=== PATIENT | female | born 1990 | race Caucasian/White ===

== ENCOUNTER 2018-06-14 18:44 | Emergency (ER) | payer BC ==
--- NOTE | 2018-06-14 20:41 | ER Document Report ---
ED Medical Screen (RME) - General Chief Complaint: Flank Pain Stated Complaint: LEFT SIDE BACK PAIN Time Seen by Provider: 06/14/18 20:39 Notes: Patient is a 28-year-old female approximately 5 weeks 5 days presents to the emergency department with a left flank pain. Patient also complaining of generalized dysuria. Patient states she does not have a history of kidney stones and has not noted any gerry blood in her urine. Patient's denying any fevers, vaginal discharge to include bleeding. Patient's denying any abdominal pain states her pain is localized in her left flank. ABDOMEN: Soft, non-tender. Non-distended. Bowel sounds present in all 4 quadrants. SKIN: Warm, dry, normal turgor. No rashes or lesions noted. I have greeted and performed a rapid initial assessment of this patient. A comprehensive ED assessment and evaluation of the patient, analysis of test results and completion of the medical decision making process will be conducted by additional ED providers. TRAVEL OUTSIDE OF THE [place] IN LAST 30 DAYS: No - Related Data Allergies/Adverse Reactions: amoxicillin [Amoxicillin] Allergy (Unknown, Verified 06/14/18 18:45) Past Medical History - Past Medical History Cardiac Medical History: Denies: Hx Coronary Artery Disease, Hx Heart Attack, Hx Hypertension Pulmonary Medical History: Denies: Hx Asthma, Hx Bronchitis, Hx COPD, Hx Pneumonia Neurological Medical History: Denies: Hx Cerebrovascular Accident, Hx Seizures Musculoskeltal Medical History: Denies Hx Arthritis - Immunizations Hx Diphtheria, Pertussis, Tetanus Vaccination: No Physical Exam - Vital signs Vitals: Temp Pulse Resp BP Pulse Ox 99.1 F 95 16 148/94 H 100 06/14/18 18:49 06/14/18 18:49 06/14/18 18:49 06/14/18 18:49 06/14/18 18:49 Course - Vital Signs Vital signs: Temp Pulse Resp BP Pulse Ox 99.1 F 95 16 148/94 H 100 06/14/18 18:49 06/14/18 18:49 06/14/18 18:49 06/14/18 18:49 06/14/18 18:49
--- NOTE | 2018-06-14 22:12 | RADIOLOGY REPORT (SQ) ---
EXAM DESCRIPTION: US RETROPERITONEUM COMPLETED DATE/TME: 06/14/2018 20:39 CLINICAL HISTORY: 28 years, Female, left flank pain COMPARISON: None. TECHNIQUE: Retroperitoneal ultrasound was performed. LIMITATIONS: None. FINDINGS: Visualized portions of the urinary bladder appear within normal limits. Neither ureteral jet was well visualized. Right kidney measures 10.3 x 5.6 x 4.7 cm in size. Left kidney measures 11.8 x 6.8 x 6.0 cm in size. Both kidneys appear normal in echogenicity. There is mild left hydronephrosis. IMPRESSION: Mild left hydronephrosis. No additional suspicious sonographic abnormality. copyright 2010 [facility] [employer]- All Rights Reserved
[2018-06-14 23:02] LABS: APPEARANCE,URINE SLIGHTLY-CLOUDY; BILIRUBIN,URINE NEGATIVE (NEGATIVE); COLOR,URINE YELLOW; GLUCOSE, URINE NEGATIVE (NEGATIVE); KETONES,URINE NEGATIVE (NEGATIVE); LEUKOCYTE ESTERASE,URINE TRACE (NEGATIVE); NITRITE,URINE NEGATIVE (NEGATIVE); PROTEIN,URINE NEGATIVE (NEGATIVE); URINE SPECIFIC GRAVITY 1.009; UROBILINOGEN,URINE NEGATIVE mg/dL (<2.0)
[2018-06-14 23:33] LABS: ABSOLUTE EOSINOPHILS # (AUTO) 0.3 10^3/uL (0.0-0.6); ABSOLUTE LYMPHOCYTES (AUTO) 2.6 10^3/uL (0.5-4.7); ABSOLUTE MONOCYTES (AUTO) 0.6 10^3/uL (0.1-1.4); ABSOLUTE NEUT (AUTO) 7.3 10^3/uL (1.7-8.2); BASOPHILS % (AUTO) 0.2 % (0-2); EOSINOPHILS % (AUTO) 2.5 % (0-6); HEMATOCRIT 40.1 % (36.0-47.0); HEMOGLOBIN 13.8 g/dL (12.0-15.5); LYMPHOCYTES % (AUTO) 24.1 % (13-45); MEAN CORPUSCULAR HEMOGLOBIN 31.5 pg (27.0-33.4); MEAN CORPUSCULAR HGB CONC 34.4 g/dL (32.0-36.0); MEAN CORPUSCULAR VOLUME 92 fl (80-97); MONOCYTES % (AUTO) 5.9 % (3-13); PLATELET COUNT 297 10^3/uL (150-450); RED BLOOD COUNT 4.38 10^6/uL (3.72-5.28); RED CELL DISTRIBUTION WIDTH 13.3 % (11.5-14.0); SEGMENTED NEUTROPHILS % (AUTO) 67.3 % (42-78); TOTAL CELLS COUNTED % (AUTO) 100 %; WHITE BLOOD COUNT 10.9 10^3/uL (4.0-10.5)
[2018-06-14 23:54] LABS: ANION GAP 9 (5-19); BLOOD UREA NITROGEN 15 mg/dL (7-20); CALCIUM 9.9 mg/dL (8.4-10.2); CARBON DIOXIDE 26 mmol/L (22-30); CHLORIDE 102 mmol/L (98-107); GLUCOSE 169 mg/dL (75-110); POTASSIUM 4.2 mmol/L (3.6-5.0); SODIUM 136.6 mmol/L (137-145)
--- NOTE | 2018-06-15 02:03 | RADIOLOGY REPORT (SQ) ---
US PELVIS HISTORY: Early . Pelvic pain. COMPARISON: None. TECHNIQUE: Grayscale, color Doppler, and spectral Doppler ultrasound images of the pelvis were obtained. FINDINGS: There is an intrauterine gestational sac with a yolk sac and pole visualized. The crown-rump length measures 0.2 cm, corresponding to 5 weeks 5 days of . The heart rate is 141 bpm. The ovaries are unremarkable. IMPRESSION: Single live IUP with estimated gestational age 5 weeks 5 days.
[2018-06-15] MEDS ORDERED: CEPHALEXIN 500 MG CAPSULE PO ONE (02:37)
--- NOTE | 2018-06-15 02:39 | ER Document Report ---
ED General - General Chief Complaint: Flank Pain Stated Complaint: LEFT SIDE BACK PAIN Time Seen by Provider: 06/14/18 20:39 Notes: Patient is a 28-year-old female at 5 weeks by LMP who presents with concerns of left flank pain. Patient states that her symptoms started 2 days ago, have eased off somewhat since onset. It is a throbbing, aching, constant pain to the left flank that intermittently radiates into her left lower abdomen. Notes associated nausea but no vomiting. Has been taking Tylenol with some improvement. States that lying on the area seems to worsen the pain. States that she has had similar symptoms once in the past but they did resolve spontaneously. There is a strong family history of nephrolithiasis although she does not know of any personal history where she has had confirmed nephrolithiasis. Denies any vaginal bleeding, vaginal discharge or dysuria. Has not seen her primary care physician regarding today's concerns. TRAVEL OUTSIDE OF THE [place] IN LAST 30 DAYS: No - Related Data Allergies/Adverse Reactions: amoxicillin [Amoxicillin] Allergy (Unknown, Verified 06/14/18 18:45) Past Medical History - General Information source: Patient - Social History Smoking Status: Never Smoker Frequency of alcohol use: None Drug Abuse: None Lives with: Spouse/Significant other Family History: Reviewed & Not Pertinent Patient has suicidal ideation: No Patient has homicidal ideation: No - Past Medical History Cardiac Medical History: Denies: Hx Coronary Artery Disease, Hx Heart Attack, Hx Hypertension Pulmonary Medical History: Denies: Hx Asthma, Hx Bronchitis, Hx COPD, Hx Pneumonia Neurological Medical History: Denies: Hx Cerebrovascular Accident, Hx Seizures Renal/ Medical History: Denies: Hx Peritoneal Dialysis Musculoskeletal Medical History: Denies Hx Arthritis - Immunizations Hx Diphtheria, Pertussis, Tetanus Vaccination: No Review of Systems - Review of Systems Notes: Constitutional: Negative for fever. HENT: Negative for sore throat. Eyes: Negative for visual changes. Cardiovascular: Negative for chest pain. Respiratory: Negative for shortness of breath. Gastrointestinal: Positive for left flank pain and nausea Genitourinary: Negative for dysuria. Musculoskeletal: Negative for back pain. Skin: Negative for rash. Neurological: Negative for headaches, weakness or numbness. 10 point ROS negative except as marked above and in HPI. Physical Exam - Vital signs Vitals: Temp Pulse Resp BP Pulse Ox 99.1 F 95 16 148/94 H 100 04/24/19 18:49 06/14/18 18:49 06/14/18 18:49 06/14/18 18:49 06/14/18 18:49 Interpretation: Normal Notes: PHYSICAL EXAMINATION: GENERAL: Well-appearing, well-nourished and in no acute distress. HEAD: Atraumatic, normocephalic. EYES: Pupils equal round and reactive to light, extraocular movements intact, sclera anicteric, conjunctiva are normal. ENT: nares patent, oropharynx clear without exudates. Moist mucous membranes. NECK: Normal range of motion, supple without lymphadenopathy LUNGS: Breath sounds clear to auscultation bilaterally and equal. No wheezes rales or rhonchi. HEART: Regular rate and rhythm without murmurs ABDOMEN: Soft, nontender, normoactive bowel sounds. No guarding, no rebound. No masses appreciated. Mild left CVA tenderness. EXTREMITIES: Normal range of motion, no pitting or edema. No cyanosis. NEUROLOGICAL: No focal neurological deficits. Moves all extremities spontaneously and on command. PSYCH: Normal mood, normal affect. SKIN: Warm, Dry, normal turgor, no rashes or lesions noted. Course - Re-evaluation Re-evalutation: 06/15/18 02:35 Patient presents with left flank pain ongoing for the past 48 hours. On exam she has left CVA tenderness but no other areas of localized abdominal tenderness. Renal ultrasound does demonstrate some mild hydronephrosis on the left consistent with probable kidney stone. Urinalysis does show some blood as well as bacteriuria. Laboratories are otherwise unremarkable. Patient's pain has been able to be controlled with oral analgesics here in the emergency department. She is 5 weeks and 5 days confirmed on transvaginal ultrasound. I do not believe it would be appropriate to get a CT scan of the abdomen and pelvis at this point given that the patient's clinical history is most consistent with a kidney stone, she is currently had a stage of critical organogenesis and I believe the risk of radiation exposure is quite high particular given the low benefit yield of a CT scan for kidney stones. Patient is a very much so in agreement with avoiding CT imaging at this time. Will continue to use Tylenol, topical numbing medication, encourage aggressive a vel of fluid intake. I advised that if the patient has not passed the stone within the next several days or continues to have pain she needs to follow-up with urology. I have also advised that she is to return to the emergency department for worsening of her pain, fever, vomiting or any other symptoms that are concerning to her. She and her significant other at the bedside are both in agreement with this approach and comfortable with the plan. - Vital Signs Vital signs: Temp Pulse Resp BP Pulse Ox 98.4 F 82 17 126/61 H 100 06/15/18 02:57 06/15/18 02:57 06/15/18 02:57 06/15/18 02:57 06/15/18 02:57 - Laboratory Result Diagrams: 06/14/18 22:45 06/14/18 22:45 Laboratory results interpreted by me: 06/14/18 06/14/18 06/14/18 22:06 22:45 22:45 WBC 10.9 H Sodium 136.6 L Glucose 169 H Beta HCG, Quant Urine Blood SMALL H Ur Leukocyte Esterase TRACE H 06/14/18 22:45 WBC Sodium Glucose Beta HCG, Quant 04423.00 H Urine Blood Ur Leukocyte Esterase - Diagnostic Test Radiology reviewed: Reports reviewed Discharge - Discharge Clinical Impression: First trimester , Left flank pain, Hydronephrosis, left, Kidney stone on left side Condition: Good Disposition: HOME, SELF-CARE Additional Instructions: Your symptoms should improve over the course of the next one week. If you continue to have pain for greater than one week or your pain is not controlled with Tylenol 1000 mg every 6 hours as well as topical lidocaine which can be purchased directly over the counter. Please also return if you develop fever, persistent vomiting, or any other symptoms that are concerning to you. Please also take the antibiotics as prescribed. Please follow-up with urology in the next 2-3 days. Prescriptions: Cephalexin Monohydrate [Keflex 500 mg Capsule] 500 mg PO Q6H 7 Days capsule
[2018-06-15 02:58] VITALS: BP 126/61
== END 2018-06-15 02:58 | disposition home or self-care (01) ==
LOC: ER 18:44
DX: O99.89 Other specified diseases and conditions complicating pregnancy, childbirth and the puerperium (principal); N13.30 Unspecified hydronephrosis; N13.2 Hydronephrosis with renal and ureteral calculous obstruction; R10.9 Unspecified abdominal pain; Z3A.01 Less than 8 weeks gestation of pregnancy; Z88.0 Allergy status to penicillin
CPT/HCPCS: 36415; 76770; 76817; 80048; 81001; 84702; 85025; 87086; 99284

== ENCOUNTER 2018-10-27 18:26 | Emergency (ER) | payer BC, OTHER ==
[2018-10-27 18:47] VITALS: BP 142/74
[2018-10-27] MEDS ORDERED: ACETAMINOPHEN 325 MG TABLET PO ONE (20:14)
--- NOTE | 2018-10-27 20:16 | ER Document Report ---
ED Medical Screen (RME) - General Chief Complaint: Abscess Stated Complaint: POSSIBLE ABSCESS Time Seen by Provider: 10/27/18 20:14 Mode of Arrival: Ambulatory Information source: Patient Notes: 28-year-old female presented to ED for large abscess to the right inner thigh. She states she noticed it yesterday and is much bigger today. She states it is very painful. She is 25 weeks 2 para 1. History of kidney stones and T&A. Patient states she occasionally drinks when she is not and she works as a [employer] Career and lives with her family. Patient is alert oriented rest. She is regular and unlabored speaking in full sentences. I have greeted and performed a rapid initial assessment of this patient. A comprehensive ED assessment and evaluation of the patient, analysis of test results and completion of medical decision making process will be conducted by an additional ED providers. TRAVEL OUTSIDE OF THE [place] IN LAST 30 DAYS: No - Related Data Allergies/Adverse Reactions: amoxicillin [Amoxicillin] Allergy (Unknown, Verified 10/27/18 18:29) Past Medical History - Social History Chew tobacco use (# tins/day): No Frequency of alcohol use: Rare Drug Abuse: None - Past Medical History Cardiac Medical History: Denies: Hx Coronary Artery Disease, Hx Heart Attack, Hx Hypertension Pulmonary Medical History: Denies: Hx Asthma, Hx Bronchitis, Hx COPD, Hx Pneumonia Neurological Medical History: Denies: Hx Cerebrovascular Accident, Hx Seizures Renal/ Medical History: Denies: Hx Peritoneal Dialysis Musculoskeltal Medical History: Denies Hx Arthritis - Immunizations Hx Diphtheria, Pertussis, Tetanus Vaccination: No Physical Exam - Vital signs Vitals: Temp Pulse Resp BP Pulse Ox 99.2 F 88 16 142/74 H 100 10/27/18 18:44 10/27/18 18:44 10/27/18 18:44 10/27/18 18:44 10/27/18 18:44 Course - Vital Signs Vital signs: Temp Pulse Resp BP Pulse Ox 99.2 F 88 16 142/74 H 100 10/27/18 18:44 10/27/18 18:44 10/27/18 18:44 10/27/18 18:44 10/27/18 18:44
[2018-10-27] MEDS ORDERED: LIDOCAINE 1% INJ-PF (10 MG/ML) 30 ML SDV INJ ONE (22:56)
[2018-10-27] MEDS ORDERED: CLINDAMYCIN HCL 150 MG CAPSULE PO ONE (22:56)
--- NOTE | 2018-10-28 00:22 | ER Document Report ---
ED General - General Chief Complaint: Abscess Stated Complaint: POSSIBLE ABSCESS Time Seen by Provider: 10/27/18 20:14 Primary Care Provider: CONNIE TOVAR MD [Primary Care Provider] - 10/30/18 Mode of Arrival: Ambulatory Notes: Patient is a pleasant 28-year-old female who is approximate 25 weeks presents with complaint of an abscess in the right inner thigh. She says started approximately 2 days ago with a small pimple now has progressed into an abscess. No fevers. No vomiting. No comp occasions with her . No other complaints at this time. TRAVEL OUTSIDE OF THE [place] IN LAST 30 DAYS: No - Related Data Allergies/Adverse Reactions: amoxicillin [Amoxicillin] Allergy (Unknown, Verified 10/27/18 18:29) Past Medical History - General Information source: Patient - Social History Smoking Status: Never Smoker Chew tobacco use (# tins/day): No Frequency of alcohol use: Rare Drug Abuse: None Family History: Reviewed & Not Pertinent Patient has suicidal ideation: No Patient has homicidal ideation: No - Past Medical History Cardiac Medical History: Denies: Hx Coronary Artery Disease, Hx Heart Attack, Hx Hypertension Pulmonary Medical History: Denies: Hx Asthma, Hx Bronchitis, Hx COPD, Hx Pneumonia Neurological Medical History: Denies: Hx Cerebrovascular Accident, Hx Seizures Renal/ Medical History: Denies: Hx Peritoneal Dialysis Musculoskeletal Medical History: Denies Hx Arthritis - Immunizations Hx Diphtheria, Pertussis, Tetanus Vaccination: No Review of Systems - Review of Systems Notes: My Normal Review Basic REVIEW OF SYSTEMS: CONSTITUTIONAL : Denies fever, chills, or sweats. Denies recent illness. Gastrointestinal: No nausea vomiting. No abdominal pain. FEMALE GENITOURINARY: Denies vaginal bleeding, abnormal or irregular periods. LMP: Currently MUSCULOSKELETAL: Denies neck or back pain or joint pain or swelling. SKIN: Abscess right inner thigh NEUROLOGICAL: Denies altered mental status or loss of consciousness. ALL OTHER SYSTEMS REVIEWED AND NEGATIVE. Physical Exam - Vital signs Vitals: Temp Pulse Resp BP Pulse Ox 99.2 F 88 16 142/74 H 100 10/27/18 18:44 10/27/18 18:44 10/27/18 18:44 10/27/18 18:44 10/27/18 18:44 - Notes Notes: General Appearance: Well nourished, alert, cooperative, no acute distress, no obvious discomfort. Well-appearing. Vitals: reviewed, See vital signs table. Lungs: No wheezing, No rales, No rhonci, No accessory muscle use, good air exchange bilaterally. Heart: Normal rate, Regular rythm, No murmur, no rub Skin: warm, dry, appropriate color, patient has an approximate 1- 2cm area of fluctuance right in the right inner thigh and inguinal area. This does not extend into the vaginal labia. Neuro: speech clear, oriented x 3, normal affect, responds appropriately to questions. Course - Re-evaluation Re-evalutation: 10/28/18 06:35 Abscess was incised and drained. Patient feels much improvement after incision and drainage. Small amount of packing was placed. Patient will be placed on clindamycin. She is encouraged to return to the ER follow-up with her doctor on Tuesday for reevaluation and packing removal of the packing still in place. Patient agrees with plan will be discharged home. Patient encouraged to return to the ER immediately if she has spreading redness or swelling, fevers, or feels like she is worsening in any way. Dictation of this chart was performed using voice recognition software; therefore, there may be some unintended grammatical errors. - Vital Signs Vital signs: Temp Pulse Resp BP Pulse Ox 99.2 F 88 16 142/74 H 100 10/27/18 18:44 10/27/18 18:44 10/27/18 18:44 10/27/18 18:44 10/27/18 18:44 Procedures - Incision and Drainage right inner thigh Type: Simple Anesthetic type: 1% Lidocaine mL's of anesthetic: 1 Blade size: 11 I&D procedure: Chlorprep applied Incision Method: Incision made by scalpel Amount/type of drainage: 2mls of purulent drainage Discharge - Discharge Clinical Impression: Abscess Condition: Good Disposition: HOME, SELF-CARE Additional Instructions: POST INCISION AND DRAINAGE: You have had an incision made to allow drainage of an abscess. The incision must remain open so that pus and debris can drain from the wound. If the abscess cavity is large, packing is placed. This keeps the tissues from collapsing and trapping pus inside, while the body shrinks the cavity. The packing may need to be replaced every day or two. The physician will instruct you on the packing. Keep a bulky dressing over the area. Replace it if it becomes saturated with blood or pus. Do not disturb the packing (if present). You may shower and cleanse the area with gentle soap and warm water two or three times a day. Local warmth may be soothing, and may promote faster healing. Return if you develop high fever or chills, or if you note spreading redness, increasing swelling, or increasing tenderness. FOLLOW-UP CARE: Please follow-up with your OB doctor on Tuesday for reevaluation. At that time the packing can be removed. If they are uncomfortable doing this you can return to the ER and we will remove the packing and reevaluate the wound. You can clean the area with soap and water. The packing may fall out on its own. It is okay if the packing does fall out. Please return to ER immediately if you have spreading redness, increasing swelling, fevers, or feel like the infection is worsening in any way. Prescriptions: Clindamycin HCl [Cleocin 150 mg Capsule] 300 mg PO Q6 #56 capsule Referrals: CONNIE TOVAR MD [Primary Care Provider] - 10/30/18
== END 2018-10-28 00:51 | disposition home or self-care (01) ==
LOC: ER 18:26
DX: O26.892 Other specified pregnancy related conditions, second trimester (principal); L02.415 Cutaneous abscess of right lower limb; Z3A.25 25 weeks gestation of pregnancy
CPT/HCPCS: 87070; 87205; 87075; 10060; J3490; 87077; 99283

== ENCOUNTER 2019-01-10 15:57 | Outpatient (CLI) | payer OTHER, MEDICAID ==
[2019-01-10] MEDS: RINGERS SOLUTION,LACTATED 1,000 ML IV PRN ×2 (16:21→17:00)
--- NOTE | 2019-01-10 23:49 | Non Stress Test Report ---
Non Stress Test Datetime Report Generated by CPN: 01/10/2019 23:49 DEMOGRAPHIC EGA NST: 35.6 MONITORING Monitor Explained: Monitor Explained; Test Explained; Patient Verbalized Understanding Time on Monitor: 01/10/2019 16:09 Time off Monitor: 01/10/2019 22:08 NST Duration: 359 NST INTERVENTIONS NST Interventions: PO Hydration; Meal Given; Reposition Patient Physician Notified NST: Dr. Shore BABY A: [id number] BABY A Movement : Present Contraction Frequency : None FHR Baseline : 130 Accelerations : 15X15 Decelerations : None Variability : Moderate 6-25bpm NST Review: Meets Criteria for Reactive NST NST Review and Verified By : Andrade Basurto RN NST Results: Reactive NST REPORT Report Trigger: Send Report
--- NOTE | 2019-01-11 00:35 | RADIOLOGY REPORT (SQ) ---
EXAM DESCRIPTION: [facility]: US LIMITED CLINICAL HISTORY: 28 years Female; oligo at office today EGA 35 weeks 1 day by LMP TECHNIQUE: Transabdominal obstetrical ultrasound was performed. COMPARISON: 06/15/2018 FINDINGS: Number of fetuses: Single position: Breech measurements not obtained. HR: 135 BPM Amniotic fluid: Increased, AILYN 6.9 cm Cervix: 3.6 cm long, closed Placenta: Anterior IMPRESSION: 1. Single viable IUP. 2. Oligohydramnios, AILYN 6.9 cm
== END 2019-01-10 23:11 | disposition home or self-care (01) ==
LOC: LC 15:57
PROVIDERS: ATTEND Advanced Practice Midwife
PROC: 4A1HXCZ Monitoring of Products of Conception, Cardiac Rate, External Approach (ICD-10-PCS; principal; 2019-01-10)
DX: O15.03 Eclampsia complicating pregnancy, third trimester (principal); O24.419 Gestational diabetes mellitus in pregnancy, unspecified control; Z3A.35 35 weeks gestation of pregnancy
CPT/HCPCS: 59025; 76815

== ENCOUNTER 2019-01-13 17:58 | Inpatient (IN) | payer OTHER, MEDICAID ==
[2019-01-13 18:39] LABS: ABSOLUTE EOSINOPHILS # (AUTO) 0.1 10^3/uL (0.0-0.6); ABSOLUTE LYMPHOCYTES (AUTO) 1.9 10^3/uL (0.5-4.7); ABSOLUTE MONOCYTES (AUTO) 0.7 10^3/uL (0.1-1.4); ABSOLUTE NEUT (AUTO) 8.3 10^3/uL (1.7-8.2); BASOPHILS % (AUTO) 0.1 % (0-2); EOSINOPHILS % (AUTO) 1.1 % (0-6); HEMATOCRIT 34.8 % (36.0-47.0); LYMPHOCYTES % (AUTO) 17.5 % (13-45); MEAN CORPUSCULAR HEMOGLOBIN 32.1 pg (27.0-33.4); MEAN CORPUSCULAR HGB CONC 34.3 g/dL (32.0-36.0); MEAN CORPUSCULAR VOLUME 94 fl (80-97); MONOCYTES % (AUTO) 6.4 % (3-13); PLATELET COUNT 226 10^3/uL (150-450); RED BLOOD COUNT 3.72 10^6/uL (3.72-5.28); SEGMENTED NEUTROPHILS % (AUTO) 74.9 % (42-78); TOTAL CELLS COUNTED % (AUTO) 100 %; WHITE BLOOD COUNT 11.1 10^3/uL (4.0-10.5)
[2019-01-13 18:54] LABS: ALKALINE PHOSPHATASE 123 U/L (38-126); ANION GAP 7 (5-19); ASPARTATE AMINO TRANSFERASE 16 U/L (14-36); BILIRUBIN,DIRECT 0.1 mg/dL (0.0-0.4); BILIRUBIN,TOTAL 0.2 mg/dL (0.2-1.3); BLOOD UREA NITROGEN 14 mg/dL (7-20); CALCIUM 9.8 mg/dL (8.4-10.2); CARBON DIOXIDE 23 mmol/L (22-30); CHLORIDE 109 mmol/L (98-107); GLUCOSE 83 mg/dL (75-110); POTASSIUM 4.2 mmol/L (3.6-5.0); TOTAL PROTEIN 5.8 g/dL (6.3-8.2)
[2019-01-13 19:00] LABS: APPEARANCE,URINE SLIGHTLY-CLOUDY; BILIRUBIN,URINE NEGATIVE (NEGATIVE); COLOR,URINE YELLOW; GLUCOSE, URINE NEGATIVE (NEGATIVE); KETONES,URINE NEGATIVE (NEGATIVE); LEUKOCYTE ESTERASE,URINE TRACE (NEGATIVE); NITRITE,URINE NEGATIVE (NEGATIVE); PROTEIN,URINE >=500 mg/dL (NEGATIVE); URINE SPECIFIC GRAVITY 1.018; UROBILINOGEN,URINE NEGATIVE mg/dL (<2.0)
[2019-01-13 19:07] LABS: URINE AMPHETAMINES SCREEN NEGATIVE; URINE BARBITURATES SCREEN NEGATIVE; URINE BENZODIAZEPINES SCREEN NEGATIVE; URINE COCAINE SCREEN NEGATIVE; URINE MARIJUANA (THC) SCREEN NEGATIVE; URINE METHADONE SCREEN NEGATIVE; URINE PHENCYCLIDINE SCREEN NEGATIVE
[2019-01-13] MEDS: RINGERS SOLUTION,LACTATED 1,000 ML IV PRN (19:09)
[2019-01-13 19:11] LABS: URINE CREATININE 125.5 mg/dL (16-327)
[2019-01-13 19:50] LABS: URINE PROTEIN 756.8 mg/dL (<12)
--- NOTE | 2019-01-13 20:11 | Admission Physical ---
Datetime Report Generated by CPN: 01/13/2019 20:11 CURRENT ADMISSION Chief Complaint: Other Chief Complaint Other: bp problems Indication for Induction: Not Applicable Admit Impression- Other: preeclampsia Admit Plan: Admit to Unit ALLERGIES Medication Allergies: Yes Medication Allergies: amoxicillin (01/10/2019) Latex: No Latex Allergies Food Allergies: None Environmental Allergies: None OBSTETRICAL HISTORY EDC: 02/09/2019 00:00 : 3 Para: 1 Term: 1 : 0 SAB: 1 Ectopic: 0 Livin Cesareans: 1 VBACs: 0 Multiple Births: 0 Gestational Diabetes: Yes Rh Sensitization: No Incompetent Cervix: No TENNILLE: No Infertility: No ART Treatment: No Uterine Anomaly: No IUGR: No Hx Previous C/S: Yes Macrosomia: No Hx Loss/Stillborn: No PIH: Yes Hx : No Placenta Previa/Abruption: No Depression/PP Depression: No PTL/PROM: No Post Hemorrhage: No Current Procedures: Ultrasound; NST Obstetrical History Comments: G1- 2015, Pre Eclampcia, at 37.4 weeks, PIH G2- Current, pre eclampsia, GDM diet-controlled and is currently breech. SEE RECORDS Alcohol: No Marijuana : No Cocaine: No Other Illicit Drugs: No Cigarettes: Never Smoker. 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 Heart Disease: No Hosp/Surgery: Yes Autoimmune Disorder: No Anesthetic Complications: No Kidney Disease: Yes Abnormal Pap Smear: No Neuro/Epilepsy: No Psychiatric Disorders: No Other Medical Diseases: No Hepatitis/Liver Disease: No Significant Family History: No Varicosities/Phlebitis: No Trauma/Violence : No Thyroid Dysfunction: No Medical History Comments: Kidney stones, Asthma, and childbirth INFECTIOUS HISTORY Gonorrhea: No Genital Herpes: No Chlamydia: No Tuberculosis: No Syphilis: No Hepatitis: No HIV/AIDS Exposure: No Rash or Viral Illness: No HPV: No PHYSICAL EXAM General: Normal HEENT: Normal Neurologic: Normal Thyroid: Normal Heart: Normal Lungs: Normal Breast: Deferred Back: Normal Abdomen: Normal Genitourinary Exam: Normal Extremities: Normal DTRs: Normal Pelvic Type: Adequate Vital Signs: Reviewed MEMBRANES Pooling: Negative Membranes: Intact FETUS A EGA: 36.1 Monitoring: External US Decelerations: None Presentation: Vertex Admit Comment: Watch bp and plan c section for severe range pressures. We will also check renetta PLANS FOR LABOR AND DELIVERY Labor and Delivery: None Pain Management: Spinal Feeding Preference: Breast Benefit of Breast Feed Discussed: Yes Circumcision: Yes INFORMED CONSENT Signature: with User ID: [email or web address]
--- NOTE | 2019-01-13 21:42 | RADIOLOGY REPORT (SQ) ---
EXAM DESCRIPTION: US LIMITED COMPLETED DATE/TME: 01/13/2019 00:00 CLINICAL HISTORY: 28 years, Female, AILYN and EFW COMPARISON: Multiple priors, most recent from 01/10/2019 TECHNIQUE: Axial 2-D grayscale images of the pelvis were acquired. LIMITATIONS: None. FINDINGS: Limited pelvic ultrasound was performed for an estimated weight and AILYN determination. Findings are as follows: Amniotic fluid index is 6.5 cm Biparietal diameter is 8.62 cm Head circumference is 32.17 cm Abdominal circumference is 32.45 cm Femoral length is 6.68 cm Estimated weight is 2739 g (6 lbs. 1 oz.) Estimated gestational age based on ultrasound is 35 weeks and three days (clinical age is 36 weeks and two days). Estimated date of confinement by ultrasound is 02/14/2019. presentation is breech. heart rate is 132 bpm IMPRESSION: Amniotic fluid index of 6.5 cm, indicating oligohydramnios. Single live intrauterine . Estimated weight is 2739 g (6 lbs. 1 oz.). copyright 2010 [employer]- All Rights Reserved
[2019-01-13] MEDS ORDERED: ACETAMINOPHEN 325 MG TABLET PO PRN (22:07)
[2019-01-14] MEDS: RINGERS SOLUTION,LACTATED 1,000 ML IV PRN (05:10)
[2019-01-14] MEDS ORDERED: BETAMET ACET/BETAMET NA INJ 6 MG/1 ML IM ONE ×2 (09:11→16:00)
--- NOTE | 2019-01-14 09:20 | PDOC PROGRESS REPORT ---
Subjective Progress Note for:: 01/14/19 Subjective:: had headache over night that is better now. tolerating regular diet Reason For Visit: Physical Exam - Physical Exam Vital Signs: Temp Pulse Resp BP Pulse Ox 98.0 F 74 18 154/87 H 100 01/14/19 07:56 01/14/19 07:56 01/14/19 07:56 01/14/19 07:56 01/14/19 07:56 Intake & Output 01/13/19 01/14/19 01/15/19 06:59 06:59 06:59 Intake Total 700 Balance 700 Weight 121 kg General appearance: PRESENT: no acute distress, cooperative GI/Abdominal exam: PRESENT: soft - gravid with no tenderness Result Laboratory Results: 01/13/19 18:15 01/13/19 18:15 01/13/19 01/13/19 01/13/19 18:05 18:15 18:15 WBC 11.1 H RBC 3.72 Hgb 12.0 Hct 34.8 L MCV 94 MCH 32.1 MCHC 34.3 RDW 13.0 Plt Count 226 Seg Neutrophils % 74.9 Sodium 139.4 Potassium 4.2 Chloride 109 H Carbon Dioxide 23 Anion Gap 7 BUN 14 Creatinine 0.72 Est GFR ( Amer) > 60 Glucose 83 Uric Acid 6.0 Calcium 9.8 Total Bilirubin 0.2 AST 16 Alkaline Phosphatase 123 Total Protein 5.8 L Albumin 3.0 L Urine Color YELLOW Urine Appearance SLIGHTLY-CLOUDY Urine pH 7.0 Ur Specific [place] 1.018 Urine Protein >=500 H Urine Glucose (UA) NEGATIVE Urine Ketones NEGATIVE Urine Blood SMALL H Urine Nitrite NEGATIVE Ur Leukocyte Esterase TRACE H Urine WBC (Auto) 6 Urine RBC (Auto) 15 Impressions: Obstetrics Ultrasound 01/13/19 00:00 IMPRESSION: Amniotic fluid index of 6.5 cm, indicating oligohydramnios. Single live intrauterine . Estimated weight is 2739 g (6 lbs. 1 oz.). copyright 2010 [employer]- All Rights Reserved Assessment & Plan - Diagnosis (1) Qualifiers: Weeks of gestation: 36 weeks Qualified Code(s): Z3A.36 - 36 weeks gestation of Is this a current diagnosis for this admission?: Yes (2) Pre-eclampsia Qualifiers: Trimester: third trimester Qualified Code(s): O14.93 - Unspecified pre- eclampsia, third trimester Is this a current diagnosis for this admission?: Yes - Time Time Spent with patient: Less than 15 minutes Medications reviewed and adjusted accordingly: No Within: within 24 hours - Inpatient Certification Based on my medical assessment, after consideration of the patient's comorbidities, presenting symptoms, or acuity I expect that the services needed warrant INPATIENT care.: Yes I certify that my determination is in accordance with my understanding of Medicare's requirements for reasonable and necessary INPATIENT services [42 CFR 412.3e].: Yes Medical Necessity: Need Close Monitoring Due to Risk of Patient Decompensation - Plan Summary Plan Summary: d/w pt and bps are borderline. Will monitor for full 24 hours and if stable will discharge home with modified bedrest until her scheduled c/section on Jan 23. However, if pressures/symptoms worsen will proceed with delivery sooner. Counseled patient regarding benefits of a single dose of steroids to help with FLM and Neuroproection. She agrees with single dose celestone.
[2019-01-14] MEDS: ZOLPIDEM TARTRATE 5 MG TABLET PO SCH ×2 (16:05→21:38)
[2019-01-14] MEDS ORDERED: MAGNESIUM HYDROXIDE SUSP 30 ML UDCUP PO PRN (23:28)
[2019-01-14] MEDS ORDERED: DIBUCAINE 1% OINTMENT 56 GM TP PRN (23:28)
[2019-01-14] MEDS ORDERED: PSEUDOEPHEDRINE HCL 30 MG TABLET PO PRN (23:28)
[2019-01-14] MEDS ORDERED: PROMETHAZINE HCL 25 MG TABLET PO PRN (23:28)
[2019-01-14] MEDS ORDERED: PROMETHAZINE HCL INJ 25 MG/1 ML VIAL IV PRN (23:28)
[2019-01-14] MEDS ORDERED: ZOLPIDEM TARTRATE 5 MG TABLET PO PRN (23:28)
[2019-01-14] MEDS ORDERED: ACETAMINOPHEN 650 MG SUPP.RECT PR PRN (23:28)
[2019-01-14] MEDS ORDERED: MEASLES,MUMPS&RUBELLA VACC/PF 0.5 ML VIAL SUBCUT PRN (23:28)
[2019-01-14] MEDS ORDERED: PROMETHAZINE HCL 25 MG SUPP.RECT PR PRN (23:28)
[2019-01-14] MEDS ORDERED: GLYCERIN/WITCH HAZEL LEAF 1 EACH MED..WIPE TP PRN (23:28)
[2019-01-14] MEDS ORDERED: ACETAMINOPHEN WITH CODEINE #3 TABLET PO PRN ×2 (23:28)
[2019-01-14] MEDS ORDERED: DIPHENHYDRAMINE HCL 25 MG CAPSULE PO PRN (23:28)
[2019-01-14] MEDS ORDERED: NA PHOS,M-B/NA PHOS,DI-BA (ADULT) 133 ML ENEMA PR PRN (23:28)
[2019-01-14] MEDS ORDERED: BENZOCAINE/MENTHOL AEROSOL SPRAY 56 ML TOP PRN (23:28)
[2019-01-14] MEDS ORDERED: OXYTOCIN/NORMAL SALINE 20 UNIT/1,000 ML RTUINJ IV PRN (23:28)
[2019-01-14] MEDS ORDERED: DIPH/PERTUSS(ACELL)/TETANUS VAC/PF 0.5 ML SYR (>=10YO) IM PRN (23:28)
[2019-01-14] MEDS ORDERED: FAMOTIDINE 20 MG TABLET PO SCH (23:30)
[2019-01-15] MEDS ORDERED: IBUPROFEN 800 MG TABLET PO SCH (06:00)
--- NOTE | 2019-01-15 06:56 | PDOC DISCHARGE SUMMARY ---
Impression - Admit/DC Date/PCP Admission Date/Primary Care Provider: 01/13/19 18:36 JUANY BURNS MD Discharge Date: 01/15/19 - Discharge Diagnosis (1) Is this a current diagnosis for this admission?: Yes (2) Pre-eclampsia Is this a current diagnosis for this admission?: Yes - Assessment Summary: hospitalized for observation due to elevated BPs and headache. Her headache has resolved and her bps have been stable in the mildly elevated ranges. She is scheduled for c/section on Jan 23 at 37 wks ega for mild preEclampsia. - Additional Information Resuscitation Status: Full Code Discharge Diet: As Tolerated Discharge Activity: Balance Activity w/Rest Referrals: JUANY BURNS MD [Primary Care Provider] - Home Medications: Vit No.130/Iron/Folic [ Vitamins] 1 each PO DAILY 01/10/19 Aspirin [Aspirin 81 mg Chewable Tablet] 81 mg PO DAILY 01/14/19 Additional Information: patient to keep twice weekly appts for NST/AFIs and continue with planned c/section at 37 wks. History of Present Illiness History of Present Illness: GRIFFIN VARMA is a 28 year old female Physical Exam - Physical Exam Vital Signs: Temp Pulse Resp BP Pulse Ox 98.0 F 74 20 144/90 H 98 01/15/19 03:50 01/15/19 03:50 01/15/19 03:50 01/15/19 03:50 01/15/19 03:50 Intake & Output 01/13/19 01/14/19 01/15/19 06:59 06:59 06:59 Intake Total 700 Balance 700 Weight 121 kg Results Laboratory Results: WBC 11.1 10^3/uL (4.0-10.5) H 01/13/19 18:15 RBC 3.72 10^6/uL (3.72-5.28) 01/13/19 18:15 Hgb 12.0 g/dL (12.0-15.5) 01/13/19 18:15 Hct 34.8 % (36.0-47.0) L 01/13/19 18:15 MCV 94 fl (80-97) 01/13/19 18:15 MCH 32.1 pg (27.0-33.4) 01/13/19 18:15 MCHC 34.3 g/dL (32.0-36.0) 01/13/19 18:15 RDW 13.0 % (11.5-14.0) 01/13/19 18:15 Plt Count 226 10^3/uL (150-450) 01/13/19 18:15 Lymph % (Auto) 17.5 % (13-45) 01/13/19 18:15 [place] % (Auto) 6.4 % (3-13) 01/13/19 18:15 Eos % (Auto) 1.1 % (0-6) 01/13/19 18:15 Baso % (Auto) 0.1 % (0-2) 01/13/19 18:15 Absolute Neuts (auto) 8.3 10^3/uL (1.7-8.2) H 01/13/19 18:15 Absolute Lymphs (auto) 1.9 10^3/uL (0.5-4.7) 01/13/19 18:15 Absolute Monos (auto) 0.7 10^3/uL (0.1-1.4) 01/13/19 18:15 Absolute Eos (auto) 0.1 10^3/uL (0.0-0.6) 01/13/19 18:15 Absolute Basos (auto) 0.0 10^3/uL (0.0-0.2) 01/13/19 18:15 Seg Neutrophils % 74.9 % (42-78) 01/13/19 18:15 Sodium 139.4 mmol/L (137-145) 01/13/19 18:15 Potassium 4.2 mmol/L (3.6-5.0) 01/13/19 18:15 Chloride 109 mmol/L (98-107) H 01/13/19 18:15 Carbon Dioxide 23 mmol/L (22-30) 01/13/19 18:15 Anion Gap 7 (5-19) 01/13/19 18:15 BUN 14 mg/dL (7-20) 01/13/19 18:15 Creatinine 0.72 mg/dL (0.52-1.25) 01/13/19 18:15 Est GFR ( Amer) > 60 (>60) 01/13/19 18:15 Est GFR (MDRD) Non-Af > 60 (>60) 01/13/19 18:15 Glucose 83 mg/dL (75-110) 01/13/19 18:15 Uric Acid 6.0 mg/dL (2.5-6.2) 01/13/19 18:15 Calcium 9.8 mg/dL (8.4-10.2) 01/13/19 18:15 Total Bilirubin 0.2 mg/dL (0.2-1.3) 01/13/19 18:15 Direct Bilirubin 0.1 mg/dL (0.0-0.4) 01/13/19 18:15 Neonat Total Bilirubin Not Reportable 01/13/19 18:15 Neonat Direct Bilirubin Not Reportable 01/13/19 18:15 Neonat Indirect Bili Not Reportable 01/13/19 18:15 AST 16 U/L (14-36) 01/13/19 18:15 ALT 11 U/L (<35) 01/13/19 18:15 Alkaline Phosphatase 123 U/L (38-126) 01/13/19 18:15 Lactate Dehydrogenase 193 U/L (120-246) 01/13/19 18:15 Total Protein 5.8 g/dL (6.3-8.2) L 01/13/19 18:15 Albumin 3.0 g/dL (3.5-5.0) L 01/13/19 18:15 Urine Color YELLOW 01/13/19 18:05 Urine Appearance SLIGHTLY-CLOUDY 01/13/19 18:05 Urine pH 7.0 (5.0-9.0) 01/13/19 18:05 Ur Specific [place] 1.018 01/13/19 18:05 Urine Protein >=500 mg/dL (NEGATIVE) H 01/13/19 18:05 Urine Glucose (UA) NEGATIVE mg/dL (NEGATIVE) 01/13/19 18:05 Urine Ketones NEGATIVE mg/dL (NEGATIVE) 01/13/19 18:05 Urine Blood SMALL (NEGATIVE) H 01/13/19 18:05 Urine Nitrite NEGATIVE (NEGATIVE) 01/13/19 18:05 Urine Bilirubin NEGATIVE (NEGATIVE) 01/13/19 18:05 Urine Urobilinogen NEGATIVE mg/dL (<2.0) 01/13/19 18:05 Ur Leukocyte Esterase TRACE (NEGATIVE) H 01/13/19 18:05 Urine WBC (Auto) 6 /HPF 01/13/19 18:05 Urine RBC (Auto) 15 /HPF 01/13/19 18:05 U Hyaline Cast (Auto) 1 /LPF 01/13/19 18:05 Urine Bacteria (Auto) 1+ /HPF 01/13/19 18:05 Squamous Epi Cells Auto 4 /HPF 01/13/19 18:05 Urine Mucus (Auto) OCC /LPF 01/13/19 18:05 Urine Creatinine 125.5 mg/dL (16-327) 01/13/19 18:05 Protein/Creatinin Ratio 6.0 mg/mg (0.0-0.2) H 01/13/19 18:05 Urine Total Protein 756.8 mg/dL (<12) H 01/13/19 18:05 Urine Ascorbic Acid NEGATIVE (NEGATIVE) 01/13/19 18:05 Urine Opiates Screen NEGATIVE 01/13/19 18:05 Urine Methadone Screen NEGATIVE 01/13/19 18:05 Ur Barbiturates Screen NEGATIVE 01/13/19 18:05 Ur Phencyclidine Scrn NEGATIVE 01/13/19 18:05 Ur Amphetamines Screen NEGATIVE 01/13/19 18:05 U Benzodiazepines Scrn NEGATIVE 01/13/19 18:05 Urine Cocaine Screen NEGATIVE 01/13/19 18:05 U Marijuana (THC) Screen NEGATIVE 01/13/19 18:05 Impressions: Obstetrics Ultrasound 01/13/19 00:00 IMPRESSION: Amniotic fluid index of 6.5 cm, indicating oligohydramnios. Single live intrauterine . Estimated weight is 2739 g (6 lbs. 1 oz.). copyright 2010 [employer]- All Rights Reserved Stroke Is this a Stroke Patient?: No Acute Heart Failure - Is this a Heart Failure Patient?: No
[2019-01-15 07:16] VITALS: BP 148/80
[2019-01-15] MEDS ORDERED: FERROUS SULFATE 325 MG TABLET PO SCH (10:00)
[2019-01-15] MEDS ORDERED: PRENATAL VITAMIN W DHA CAPSULE PO SCH (10:00)
[2019-01-15] MEDS ORDERED: DOCUSATE SODIUM 100 MG CAPSULE PO SCH (10:00)
[2019-01-15] MEDS ORDERED: SENNOSIDES/DOCUSATE 8.6-50 MG 1 EACH TABLET PO SCH (10:00)
[2019-01-16 07:08] LABS: HEPATITS B SURFACE ANTIGEN Negative (Negative)
== END 2019-01-15 07:40 | disposition home or self-care (01) | DRG 833 ==
LOC: LC 17:58 → LR 18:36 → 2S 22:29
PROVIDERS: ADMIT Obstetrics & Gynecology; ATTEND Obstetrics & Gynecology
DX: O14.93 Unspecified pre-eclampsia, third trimester (principal); O24.410 Gestational diabetes mellitus in pregnancy, diet controlled; Z3A.36 36 weeks gestation of pregnancy; O10.913 Unspecified pre-existing hypertension complicating pregnancy, third trimester; Z88.0 Allergy status to penicillin
CPT/HCPCS: 36415; 76815; 80053; 80307; 81001; 82570; 83615; 84156; 84550; 85025; 87340; J0702; J3490; J7120

== ENCOUNTER 2019-01-15 17:13 | Inpatient (IN) | payer OTHER, MEDICAID ==
[2019-01-15 18:32] LABS: ABSOLUTE LYMPHOCYTES (AUTO) 1.8 10^3/uL (0.5-4.7); ABSOLUTE MONOCYTES (AUTO) 0.9 10^3/uL (0.1-1.4); ABSOLUTE NEUT (AUTO) 11.7 10^3/uL (1.7-8.2); BASOPHILS % (AUTO) 0.1 % (0-2); HEMOGLOBIN 12.3 g/dL (12.0-15.5); LYMPHOCYTES % (AUTO) 12.4 % (13-45); MEAN CORPUSCULAR HEMOGLOBIN 31.9 pg (27.0-33.4); MEAN CORPUSCULAR HGB CONC 34.2 g/dL (32.0-36.0); MEAN CORPUSCULAR VOLUME 94 fl (80-97); MONOCYTES % (AUTO) 6.1 % (3-13); PLATELET COUNT 253 10^3/uL (150-450); RED BLOOD COUNT 3.85 10^6/uL (3.72-5.28); RED CELL DISTRIBUTION WIDTH 13.3 % (11.5-14.0); SEGMENTED NEUTROPHILS % (AUTO) 81.4 % (42-78); TOTAL CELLS COUNTED % (AUTO) 100 %; WHITE BLOOD COUNT 14.4 10^3/uL (4.0-10.5)
[2019-01-15 18:36] LABS: APPEARANCE,URINE CLOUDY; BILIRUBIN,URINE NEGATIVE (NEGATIVE); COLOR,URINE YELLOW; GLUCOSE, URINE NEGATIVE (NEGATIVE); KETONES,URINE NEGATIVE (NEGATIVE); LEUKOCYTE ESTERASE,URINE SMALL (NEGATIVE); NITRITE,URINE NEGATIVE (NEGATIVE); PROTEIN,URINE >=500 mg/dL (NEGATIVE); URINE SPECIFIC GRAVITY 1.026; UROBILINOGEN,URINE NEGATIVE mg/dL (<2.0)
[2019-01-15 19:01] LABS: URINE AMPHETAMINES SCREEN NEGATIVE; URINE BARBITURATES SCREEN NEGATIVE; URINE BENZODIAZEPINES SCREEN NEGATIVE; URINE COCAINE SCREEN NEGATIVE; URINE MARIJUANA (THC) SCREEN NEGATIVE; URINE METHADONE SCREEN NEGATIVE; URINE PHENCYCLIDINE SCREEN NEGATIVE
[2019-01-15] MEDS ORDERED: CITRIC ACID/SODIUM CITRATE ORAL SOLN 15 ML UDCUP PO ONE (19:16)
[2019-01-15] MEDS ORDERED: CLINDAMYCIN 900 MG/D5W RTU 900 MG/50 ML RTUPB IV ONE (19:20)
[2019-01-15] MEDS ORDERED: CITRIC ACID/SODIUM CITRATE ORAL SOLN 15 ML UDCUP ONE (19:20)
[2019-01-15] MEDS ORDERED: OXYTOCIN/NORMAL SALINE 20 UNIT/1,000 ML RTUINJ ONE (19:45)
[2019-01-15] MEDS ORDERED: FENTANYL CITRATE INJ/PF 100 MCG/2 ML AMPUL ONE ×2 (19:45→22:22)
[2019-01-15] MEDS ORDERED: ONDANSETRON HCL INJ/PF 4 MG/2 ML SDV ONE (19:45)
[2019-01-15] MEDS ORDERED: MORPHINE SULFATE 10 MG/ML INJ ONE (19:45)
[2019-01-15] MEDS ORDERED: OXYTOCIN 10 UNIT/ML VIAL ONE (19:45)
[2019-01-15] MEDS ORDERED: MIDAZOLAM 2 MG/2 ML INJ ONE (19:45)
--- NOTE | 2019-01-15 19:57 | Admission Physical ---
Datetime Report Generated by CPN: 01/15/2019 19:56 CURRENT ADMISSION Chief Complaint: Scheduled Baggagemaster Complaint Other: bp problems Indication for Induction: Not Applicable Admit Impression : Intact Membranes Admit Impression- Other: preeclampsia Admit Plan: Admit to Unit ALLERGIES Medication Allergies: Yes Medication Allergies: amoxicillin/Swelling of the (01/15/2019) Latex: No Latex Allergies Food Allergies: None Environmental Allergies: None OBSTETRICAL HISTORY EDC: 02/09/2019 00:00 : 3 Para: 1 Term: 1 : 0 SAB: 1 Ectopic: 0 Livin Cesareans: 1 VBACs: 0 Multiple Births: 0 Gestational Diabetes: Yes Rh Sensitization: No Incompetent Cervix: No TENNILLE: No Infertility: No ART Treatment: No Uterine Anomaly: No IUGR: No Hx Previous C/S: Yes Macrosomia: No Hx Loss/Stillborn: No PIH: Yes Hx : No Placenta Previa/Abruption: No Depression/PP Depression: No PTL/PROM: No Post Hemorrhage: No Current Procedures: Ultrasound; NST Obstetrical History Comments: G1- 2015, Pre Eclampcia, at 37.4 weeks, PIH G2- Current, pre eclampsia, GDM diet-controlled and is currently breech. SEE RECORDS Alcohol: No Marijuana : No Cocaine: No Other Illicit Drugs: No Cigarettes: Never Smoker. 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 Surgery: Yes Heart Disease: No Hosp/Surgery: Yes Autoimmune Disorder: No Anesthetic Complications: No Kidney Disease: Yes Abnormal Pap Smear: No Neuro/Epilepsy: No Psychiatric Disorders: No Other Medical Diseases: No Hepatitis/Liver Disease: No Significant Family History: No Varicosities/Phlebitis: No Trauma/Violence : No Thyroid Dysfunction: No Medical History Comments: Kidney stones, Asthma, and childbirth INFECTIOUS HISTORY Gonorrhea: No Genital Herpes: No Chlamydia: No Tuberculosis: No Syphilis: No Hepatitis: No HIV/AIDS Exposure: No Rash or Viral Illness: No HPV: No PHYSICAL EXAM General: Normal HEENT: Normal Neurologic: Normal Thyroid: Normal Heart: Normal Lungs: Normal Breast: Deferred Back: Normal Abdomen: Normal Genitourinary Exam: Normal Extremities: Normal DTRs: Normal Pelvic Type: Adequate Vital Signs: Reviewed VAGINAL EXAM Dilatation: 0 Effacement: 0 MEMBRANES Pooling: Negative Membranes: Intact FETUS A EGA: 36.3 Monitoring: External US FHR- Baseline: 120 Decelerations: None Presentation: Breech Admit Comment: Admit. Bp now severe range BP PLANS FOR LABOR AND DELIVERY Labor and Delivery: None Pain Management: Spinal Feeding Preference: Breast Benefit of Breast Feed Discussed: Yes Circumcision: Yes INFORMED CONSENT Signature: with User ID: [email or web address]
[2019-01-15] MEDS ORDERED: MEASLES,MUMPS&RUBELLA VACC/PF 0.5 ML VIAL SUBCUT PRN (20:59)
[2019-01-15] MEDS ORDERED: PROMETHAZINE HCL INJ 25 MG/1 ML VIAL IV PRN (20:59)
[2019-01-15] MEDS ORDERED: ACETAMINOPHEN 1,000 MG/100 ML RTUPB IV PRN (20:59)
[2019-01-15] MEDS ORDERED: DIPH/PERTUSS(ACELL)/TETANUS VAC/PF 0.5 ML SYR (>=10YO) IM PRN (20:59)
[2019-01-15] MEDS ORDERED: HYDROMORPHONE HCL INJ/PF 2 MG/ML AMPULE IV PRN (20:59)
[2019-01-15] MEDS ORDERED: RINGERS SOLUTION,LACTATED 1,000 ML IV PRN (20:59)
[2019-01-15] MEDS ORDERED: ACETAMINOPHEN 325 MG TABLET PO PRN (20:59)
[2019-01-15] MEDS ORDERED: OXYTOCIN/NORMAL SALINE 20 UNIT/1,000 ML RTUINJ IV PRN (20:59)
--- NOTE | 2019-01-15 21:03 | Operative Report ---
Operative Report DATE OF SURGERY: 01/15/19 PREOPERATIVE DIAGNOSIS: Preeclampsia with severe features, breech, desires tubal ligation POSTOPERATIVE DIAGNOSIS: Same OPERATION: Repeat via low transverse uterine incision tubal ligation using Filshie clips SURGEON: CONNIE TOVAR ANESTHESIA: Spinal TISSUE REMOVED OR ALTERED: Placenta COMPLICATIONS: None ESTIMATED BLOOD LOSS: 400 INTRAOPERATIVE FINDINGS: Normal uterus tubes ovaries PROCEDURE: Patient was taken to the OR and placed in supine position after her spinal anesthesia. She is prepared and draped in sterile fashion. [place] was placed for drainage of the bladder. Low transverse incision was made and carried down the level of the fascia. The fascial incision was made with knife and extended bilaterally with curved Burr scissors. The fascia was off the rectus muscles using sharp and blunt dissection. The rectus muscles are in the midline. The peritoneum was entered without incident. Bladder blade was placed in uterine segment was identified. A low transverse incision was made creating a bladder flap. Bladder blade was placed low transverse uterine incision was made with the knife and extended with fingertips. The baby was delivered with some fundal pressure. Mouth and nose were suctioned free. The cord is doubly clamped and cut. Baby is passed off to the broadband technician in attendance. The placenta was manually extracted with trailing membranes. The uterus was externalized wrapped in a moist lap sponge. Uterine contents wiped free. Uterus was closed with a running locking layer of 0 chromic suture using the second layer to imbricate the first completing a double layer closure of the uterus. The serosa was closed with a running 2-0 chromic stitch. Each fallopian tube was identified by its fimbriated end and a Filshie clip was placed at the mid isthmic portion of each tube. The pelvis was irrigated and suctioned free of fluid the uterus was replaced in the abdomen. The abdominal wall peritoneum was closed with running 2-0 chromic stitch. Fascia was closed with a running 0 Vicryl in 2 segments. Lucy's layer was brought together with 0 plain gut stitch and the skin was closed with running subcuticular 4-0 undyed Vicryl stitch. The wound was dressed mother and baby did well.
[2019-01-15 21:26] LABS: CHLAM PCR NOT DETECTED (NOT DETECT)
[2019-01-15] MEDS ORDERED: ACETAMINOPHEN 1,000 MG/100 ML RTUPB IV ONE (21:26)
[2019-01-15] MEDS ORDERED: MAGNESIUM SULFATE 4 GM/100 ML RTUPB IV ONE ×4 (21:33→21:43)
[2019-01-15] MEDS ORDERED: MAGNESIUM SULFATE 20 GM/500 ML RTUINJ IV ONE (21:43)
[2019-01-15] MEDS: MAGNESIUM SULFATE 20 GM/500 ML RTUINJ IV PRN (22:12)
[2019-01-15] MEDS ORDERED: KETOROLAC TROMETHAMINE INJ/PF 30 MG/1 ML SDV ONE (22:16)
[2019-01-15] MEDS: KETOROLAC TROMETHAMINE INJ/PF 30 MG/1 ML SDV IV SCH (22:17)
--- NOTE | 2019-01-16 00:44 | Delivery Summary ---
Del Sum A-C Datetime Report Generated by CPN: 01/16/2019 00:44 DELIVERY PERSONNEL DELIVERY PERSONNEL: [id number] Delivery Doctor:: Neftaly Richardson MD Anesthesiologist:: Bret Tyson MD SAP GATHERER:: Spike Daly CRNA Labor and Delivery Nurse:: Evita Webber RNcataloging assistant Nurse:: Deja Perdue RN Water Quality Manager:: Evita Webber RN Neonatal Nurse Practitioner:: OLINDA Ng Nursery Nurse:: Lala Leon Nursery Nurse:: Bel Asif RN Change Management Lead/SUPPLY CHAIN DIRECTOR: Jeannie Fam CST Change Management Lead/SUPPLY CHAIN DIRECTOR: Josseline Horne ST MATERNAL INFORMATION Delivery Anesthesia: Spinal Medications After Delivery: Pitocin Bolus-Please Comment Meds After Delivery Comment: Pitocin 20units/1000ml NSS x2 Delivery QBL: 290 Maternal Complications: None LABOR SUMMARY EDC: 02/09/2019 00:00 No. Babies in Womb: 1 Attempted: No Labor Anesthesia: None LABOR INFORMATION Reason for Induction: Not Applicable Oxytocin: N/A Group B Beta Strep: unknown Antibiotics # of Doses: 1 Antibiotics Time of Last Dose: 1950 Name of Antibiotic Given: Clindamycin Steroids Given: > 24 Hours before Delivery Reason Steroids Not Administered: Not Applicable MEMBRANES Membranes Rupture Method: Artificial Rupture of Membranes: 01/15/2019 20:15 Length of Rupture (hr): 0.02 Amniotic Fluid Color: Clear Amniotic Fluid Amount: Moderate Amniotic Fluid Odor: None STAGES OF LABOR Stage 3 hr: 0 Stage 3 min: 2 VAGINAL DELIVERY Episiotomy: None Laceration #1: None Laceration Extension #1: N/A Sponge Count Correct: N/A Sharps Count Correct: N/A CSECTION DELIVERY Primary Indication: Other Other Primary Indication: Pre-Eclampsia Secondary Indication: Breech Presentation CSection Urgency: Scheduled CSection Incidence: Repeat Labor: N/A Elective: Elective CSection Incision: Lower Uterine Transverse Other Sterilization Procedure: Filshie BABY A INFORMATION Delivery Date/Time: 01/15/2019 20:16 Method of Delivery: Born in Route : No : N/A Forceps: N/A Vacuum Extraction: N/A Shoulder Dystocia : No PRESENTATION/POSITION BABY A Presentation: Breech Cephalic Presentation: N/A Breech Presentation: Oumar PLACENTA INFORMATION BABY A Placenta Delivery Time : 01/15/2019 20:18 Placenta Method of Delivery: Manual Removal Placenta Status: Delivered SCORES BABY A Heart Rate 1 min: >100 bpm Resp Effort 1 min: Good Cry Reflex Irritability 1 min: Cough or Sneeze or Pulls Away Muscle Tone 1 min: Active Motion Color 1 min: Blue/Pale Resuscitation Effort 1 min: Tactile Stimulation SCORE 1 MIN: 8 Heart Rate 5 min: >100 bpm Resp Effort 5 min: Good Cry Reflex Irritability 5 min: Cough or Sneeze or Pulls Away Muscle Tone 5 min: Active Motion Color 5 min: Body [place], Extremities Blue SCORE 5 MIN: 9 INFORMATION BABY A Gestational Age at Delivery: 36.3 Gestational Status: Late - 34- 36.6 Weeks Outcome : Liveborn Infant Condition : Stable Sex: Male IDENTIFICATION BABY A Verification Date/Time: 01/15/2019 20:59 ID Band Number: [id number] Mother's Name Verified: Yes RN Verifying Infant: Andrade Basurto, RN and E. Corriek, RN WEIGHT/LENGTH BABY A Infant Birthweight (gm): 2250 Infant Weight (lb): 4 Infant Weight (oz): 15 Length (in): 17.50 Length (cm): 44.45 CORD INFORMATION BABY A No. Cord Vessels: 3 (Annotations: Data stored by [facility] on behalf of user) Nuchal Cord : N/A Cord Blood Taken: Yes-For Eval (Mom's Blood Type - or O+) (Annotations: Data stored by [facility] on behalf of user) Suction: Mouth ASSESSMENT BABY A Skin to Skin: Yes Skin to Skin Time (min): 60 BABY B INFORMATION : N/A
--- NOTE | 2019-01-16 00:44 | Warning Signs in Babies ---
VOD Warning Signs Datetime Report Generated by [facility]: 01/16/2019 00:44 VOD#608 -Warning Signs in Babies: Needs to be viewed. (01/10/2019 16:33:Evita Webber RN)
[2019-01-16] MEDS ORDERED: CLINDAMYCIN 900 MG/D5W RTU 900 MG/50 ML RTUPB IV ONE (01:59)
[2019-01-16] MEDS: CLINDAMYCIN 900 MG/D5W RTU 900 MG/50 ML RTUPB IV SCH ×2 (02:02→20:13)
[2019-01-16] MEDS ORDERED: KETOROLAC TROMETHAMINE INJ/PF 30 MG/1 ML SDV ONE ×2 (05:50→15:36)
[2019-01-16] MEDS: KETOROLAC TROMETHAMINE INJ/PF 30 MG/1 ML SDV IV SCH ×2 (05:52→20:13)
[2019-01-16 06:38] LABS: HEMATOCRIT 34.1 % (36.0-47.0); HEMOGLOBIN 11.7 g/dL (12.0-15.5); MEAN CORPUSCULAR HEMOGLOBIN 32.1 pg (27.0-33.4); MEAN CORPUSCULAR HGB CONC 34.3 g/dL (32.0-36.0); MEAN CORPUSCULAR VOLUME 94 fl (80-97); PLATELET COUNT 227 10^3/uL (150-450); RED BLOOD COUNT 3.65 10^6/uL (3.72-5.28); RED CELL DISTRIBUTION WIDTH 13.3 % (11.5-14.0)
[2019-01-16] MEDS ORDERED: OXYCODONE-ACETAMINOPHEN 5-325 MG TABLET ONE ×2 (06:56→11:24)
[2019-01-16] MEDS: OXYCODONE-ACETAMINOPHEN 5-325 MG TABLET PO PRN ×3 (06:57→21:01)
[2019-01-16] MEDS ORDERED: MAGNESIUM SULFATE 20 GM/500 ML RTUINJ IV ONE (06:59)
[2019-01-16] MEDS: MAGNESIUM SULFATE 20 GM/500 ML RTUINJ IV PRN (07:14)
[2019-01-16] MEDS ORDERED: DOCUSATE SODIUM 100 MG CAPSULE ONE ×2 (09:47→19:26)
[2019-01-16] MEDS: DOCUSATE SODIUM 100 MG CAPSULE PO SCH ×2 (09:49→19:28)
[2019-01-16] MEDS ORDERED: SIMETHICONE 80 MG TAB.CHEW ONE (12:36)
[2019-01-16] MEDS: SIMETHICONE 80 MG TAB.CHEW PO PRN ×2 (12:38→20:59)
[2019-01-16] MEDS ORDERED: KETOROLAC TROMETHAMINE 60 MG/2 ML SDV ONE (15:35)
[2019-01-16] MEDS: PRENATAL VITAMIN W DHA CAPSULE PO SCH (20:12)
[2019-01-16] MEDS: IBUPROFEN 800 MG TABLET PO SCH (20:59)
[2019-01-17] MEDS: IBUPROFEN 800 MG TABLET PO SCH ×4 (02:02→20:05)
[2019-01-17 07:11] LABS: HEPATITS B SURFACE ANTIGEN Negative (Negative)
--- NOTE | 2019-01-17 09:28 | PDOC PROGRESS REPORT ---
Subjective-OB Progress Note for:: 01/17/19 Subjective: Doing well, OOB in shower, states she is doing well, no c/o, hsb in room, pain under control Physical Exam (OB) Vital Signs: Temp Pulse Resp BP Pulse Ox 98.4 F 81 16 149/91 H 100 01/17/19 08:30 01/17/19 08:30 01/17/19 08:30 01/17/19 08:30 01/17/19 08:30 Intake & Output 01/16/19 01/17/19 01/18/19 06:59 06:59 06:59 Intake Total 452 Output Total 250 Balance 202 Weight 120.6 kg - Lochia Lochia Amount: Scant < 10 ml Lochia Color: Rubra/Red - Abdomen Description: Soft Hernia Present: No Fundal Description: Firm, Midline Fundal Height: u/u - u/2 Objective-Diagnostic Laboratory: 01/16/19 05:53 Assessment and Plan(PN) - Assessment and Plan (1) S/P repeat low transverse Is this a current diagnosis for this admission?: Yes (2) Pre-eclampsia Qualifiers: Trimester: third trimester Is this a current diagnosis for this admission?: Yes - Time Spent with Patient Time with patient: Less than 15 minutes Medications reviewed and adjusted accordingly: Yes - Disposition Anticipated Discharge: Home Within: within 24 hours
[2019-01-17] MEDS: PRENATAL VITAMIN W DHA CAPSULE PO SCH (09:38)
[2019-01-17] MEDS: DOCUSATE SODIUM 100 MG CAPSULE PO SCH ×2 (09:39→18:09)
[2019-01-17] MEDS ORDERED: HYDRALAZINE HCL INJ/PF 20 MG/1 ML SDV IV ONE (15:00)
[2019-01-17] MEDS: NIFEDIPINE 30 MG TAB.ER.24 PO SCH (15:09)
[2019-01-17] MEDS: OXYCODONE-ACETAMINOPHEN 5-325 MG TABLET PO PRN (20:05)
[2019-01-18] MEDS: IBUPROFEN 800 MG TABLET PO SCH ×2 (02:21→09:24)
[2019-01-18 08:00] VITALS: BP 130/74
[2019-01-18] MEDS: NIFEDIPINE 30 MG TAB.ER.24 PO SCH (09:23)
[2019-01-18] MEDS: PRENATAL VITAMIN W DHA CAPSULE PO SCH (09:24)
[2019-01-18] MEDS: DOCUSATE SODIUM 100 MG CAPSULE PO SCH (09:24)
--- NOTE | 2019-01-18 10:29 | PDOC DISCHARGE SUMMARY ---
Impression - Admit/DC Date/PCP Admission Date/Primary Care Provider: 01/15/19 18:00 JUANY BURNS MD Discharge Date: 01/18/19 - POD#3, doing well, up out of bed, denies headache, s/p Rpt , Pre-eclampsia on Magnessium Sulfate this admission. - Discharge Diagnosis (1) Oligohydramnios Is this a current diagnosis for this admission?: Yes (2) Breech presentation Is this a current diagnosis for this admission?: Yes (3) S/P repeat low transverse Is this a current diagnosis for this admission?: Yes (4) Pre-eclampsia Is this a current diagnosis for this admission?: Yes (5) Is this a current diagnosis for this admission?: Yes - Assessment Summary: doing well since delivering, - Additional Information Resuscitation Status: Full Code Discharge Diet: As Tolerated, Regular Discharge Activity: Activity As Tolerated, No Driving, No Lifting Over 10 Pounds, Pelvic Rest Referrals: JUANY BURNS MD [Primary Care Provider] - Prescriptions: Ibuprofen [Motrin 800 mg Tablet] 800 mg PO Q6A #60 tablet Oxycodone HCl/Acetaminophen [Percocet 5-325 mg Tablet] 1 tab PO Q4HP PRN #30 tablet PRN Reason: Pain Scale Of 3 Nifedipine [Procardia XL 30 mg Tablet] 30 mg PO DAILY #30 tab.er.24 Home Medications: Vit No.130/Iron/Folic [ Tablet] 1 each PO DAILY 01/10/19 Ibuprofen [Motrin 800 mg Tablet] 800 mg PO Q6A #60 tablet 01/18/19 Nifedipine [Procardia XL 30 mg Tablet] 30 mg PO DAILY #30 tab.er.24 01/18/19 Oxycodone HCl/Acetaminophen [Percocet 5-325 mg Tablet] 1 tab PO Q4HP PRN #30 tablet 01/18/19 HPI Gestational Age: 36 weeks Reason(s) for Admission: Ceasarean Section-Repeat Procedures: NST, Ultrasound Intrapartum Procedure(s): : Low Cervical, Transverse Hospital Course Hospital Course: Delivered due to worsening Pre-eclampsia w/ oligohydramnios Results Laboratory Results: WBC 15.0 10^3/uL (4.0-10.5) H 01/16/19 05:53 RBC 3.65 10^6/uL (3.72-5.28) L 01/16/19 05:53 Hgb 11.7 g/dL (12.0-15.5) L 01/16/19 05:53 Hct 34.1 % (36.0-47.0) L 01/16/19 05:53 MCV 94 fl (80-97) 01/16/19 05:53 MCH 32.1 pg (27.0-33.4) 01/16/19 05:53 MCHC 34.3 g/dL (32.0-36.0) 01/16/19 05:53 RDW 13.3 % (11.5-14.0) 01/16/19 05:53 Plt Count 227 10^3/uL (150-450) 01/16/19 05:53 Lymph % (Auto) 12.4 % (13-45) L 01/15/19 18:15 [place] % (Auto) 6.1 % (3-13) 01/15/19 18:15 Eos % (Auto) 0.0 % (0-6) 01/15/19 18:15 Baso % (Auto) 0.1 % (0-2) 01/15/19 18:15 Absolute Neuts (auto) 11.7 10^3/uL (1.7-8.2) H 01/15/19 18:15 Absolute Lymphs (auto) 1.8 10^3/uL (0.5-4.7) 01/15/19 18:15 Absolute Monos (auto) 0.9 10^3/uL (0.1-1.4) 01/15/19 18:15 Absolute Eos (auto) 0.0 10^3/uL (0.0-0.6) 01/15/19 18:15 Absolute Basos (auto) 0.0 10^3/uL (0.0-0.2) 01/15/19 18:15 Seg Neutrophils % 81.4 % (42-78) H 01/15/19 18:15 Urine Color YELLOW 01/15/19 18:15 Urine Appearance CLOUDY 01/15/19 18:15 Urine pH 6.0 (5.0-9.0) 01/15/19 18:15 Ur Specific [place] 1.026 01/15/19 18:15 Urine Protein >=500 mg/dL (NEGATIVE) H 01/15/19 18:15 Urine Glucose (UA) NEGATIVE mg/dL (NEGATIVE) 01/15/19 18:15 Urine Ketones NEGATIVE mg/dL (NEGATIVE) 01/15/19 18:15 Urine Blood SMALL (NEGATIVE) H 01/15/19 18:15 Urine Nitrite NEGATIVE (NEGATIVE) 01/15/19 18:15 Urine Bilirubin NEGATIVE (NEGATIVE) 01/15/19 18:15 Urine Urobilinogen NEGATIVE mg/dL (<2.0) 01/15/19 18:15 Ur Leukocyte Esterase SMALL (NEGATIVE) H 01/15/19 18:15 Urine Ascorbic Acid NEGATIVE (NEGATIVE) 01/15/19 18:15 Urine Opiates Screen NEGATIVE 01/15/19 18:15 Urine Methadone Screen NEGATIVE 01/15/19 18:15 Ur Barbiturates Screen NEGATIVE 01/15/19 18:15 Ur Phencyclidine Scrn NEGATIVE 01/15/19 18:15 Ur Amphetamines Screen NEGATIVE 01/15/19 18:15 U Benzodiazepines Scrn NEGATIVE 01/15/19 18:15 Urine Cocaine Screen NEGATIVE 01/15/19 18:15 U Marijuana (THC) Screen NEGATIVE 01/15/19 18:15 RPR NONREACTIVE (NONREACTIVE) 01/15/19 18:15 Chlamydia DNA (PCR) NOT DETECTED (NOT DETECT) 01/15/19 19:30 Hep Bs Antigen Negative (Negative) 01/15/19 18:15 N.gonorrhoeae DNA (PCR) NOT DETECTED (NOT DETECT) 01/15/19 19:30 Blood Type O POSITIVE 01/15/19 18:15 Antibody Screen NEGATIVE 01/15/19 18:15 Plan Health Concerns: Watch BP PP, precautions reviewed Plan of Treatment: f/u with [facility] in once week for BP check and incision check
[2019-01-19 07:04] LABS: HEPATITS B SURFACE ANTIGEN Negative (Negative)
--- NOTE | 2019-01-22 08:24 | Delivery Summary ---
Del Sum A-C Datetime Report Generated by [facility]: 01/22/2019 08:23 DELIVERY PERSONNEL DELIVERY PERSONNEL: [id number] Delivery Doctor:: Neftaly Richardson MD Delivery Doctor:: Neftaly Richardson MD Anesthesiologist:: Bret Tyson MD Anesthesiologist:: Bret Tyson MD SALES TRAINING REPRESENTATIVE:: Spike Daly CRNA SALES TRAINING REPRESENTATIVE:: Spike Daly CRNA Labor and Delivery Nurse:: Evita Webber RNcollege advisor Nurse:: Deja Perdue RN Urologist Physician:: Evita Webber RN Neonatal Nurse Practitioner:: OLINDA Ng Nursery Nurse:: Lala Leon Nursery Nurse:: Bel Asif RN Band Nailer/END PACKER: Jeannie Fam, SCHOOL RESOURCE OFFICER Band Nailer/END PACKER: Jeannie Fam SCHOOL RESOURCE OFFICER Band Nailer/END PACKER: ST Anant Band Nailer/END PACKER: Josseline Horne, ST MATERNAL INFORMATION Delivery Anesthesia: Spinal Medications After Delivery: Pitocin Bolus-Please Comment Meds After Delivery Comment: Pitocin 20units/1000ml NSS x2 Delivery QBL: 290 Maternal Complications: None LABOR SUMMARY EDC: 02/09/2019 00:00 No. Babies in Womb: 1 Attempted: No Labor Anesthesia: None LABOR INFORMATION Reason for Induction: Not Applicable Oxytocin: N/A Group B Beta Strep: 1 NO GROUP B STREPTOCOCCUS RECOVERED Group B Beta Strep: unknown Antibiotics # of Doses: 1 Antibiotics Time of Last Dose: 1950 Name of Antibiotic Given: Clindamycin Steroids Given: > 24 Hours before Delivery Reason Steroids Not Administered: Not Applicable MEMBRANES Membranes Rupture Method: Artificial Rupture of Membranes: 01/15/2019 20:15 Length of Rupture (hr): 0.02 Amniotic Fluid Color: Clear Amniotic Fluid Amount: Moderate Amniotic Fluid Odor: None STAGES OF LABOR Stage 3 hr: 0 Stage 3 min: 2 VAGINAL DELIVERY Episiotomy: None Laceration #1: None Laceration Extension #1: N/A Sponge Count Correct: N/A Sharps Count Correct: N/A CSECTION DELIVERY Primary Indication: Other Other Primary Indication: Pre-Eclampsia Secondary Indication: Breech Presentation CSection Urgency: Scheduled CSection Incidence: Repeat Labor: N/A Elective: Elective CSection Incision: Lower Uterine Transverse CSection Incision: Lower Uterine Transverse Other Sterilization Procedure: Filshie BABY A INFORMATION Delivery Date/Time: 01/15/2019 20:16 Method of Delivery: Born in Route : No : N/A Forceps: N/A Vacuum Extraction: N/A Shoulder Dystocia : No PRESENTATION/POSITION BABY A Presentation: Breech Cephalic Presentation: N/A Breech Presentation: Oumar PLACENTA INFORMATION BABY A Placenta Delivery Time : 01/15/2019 20:18 Placenta Method of Delivery: Manual Removal Placenta Status: Delivered SCORES BABY A Heart Rate 1 min: >100 bpm Resp Effort 1 min: Good Cry Reflex Irritability 1 min: Cough or Sneeze or Pulls Away Muscle Tone 1 min: Active Motion Color 1 min: Blue/Pale Resuscitation Effort 1 min: Tactile Stimulation SCORE 1 MIN: 8 Heart Rate 5 min: >100 bpm Resp Effort 5 min: Good Cry Reflex Irritability 5 min: Cough or Sneeze or Pulls Away Muscle Tone 5 min: Active Motion Color 5 min: Body Orick, Extremities Blue SCORE 5 MIN: 9 INFANT INFORMATION BABY A Gestational Age at Delivery: 36.3 Gestational Status: Late - 34- 36.6 Weeks Outcome : Liveborn Condition : Stable Infant Sex: Male IDENTIFICATION BABY A Verification Date/Time: 01/15/2019 20:59 ID Band Number: [id number] Mother's Name Verified: Yes Infant RN Verifying : Andrade Basurto, RN and E. Jilek, RN WEIGHT/LENGTH BABY A Birthweight (gm): 2250 Infant Weight (lb): 4 Weight (oz): 15 Infant Length (in): 17.50 Infant Length (cm): 44.45 CORD INFORMATION BABY A No. Cord Vessels: 3 (Annotations: Data stored by [facility] on behalf of user) No. Cord Vessels: 3 Nuchal Cord : N/A Cord Blood Taken: Yes-For Eval (Mom's Blood Type - or O+) (Annotations: Data stored by [facility] on behalf of user) Suction: Mouth ASSESSMENT BABY A Skin to Skin: Yes Skin to Skin Time (min): 60 BABY B INFORMATION : N/A
== END 2019-01-18 12:59 | disposition home or self-care (01) | DRG 783 ==
LOC: LC 17:13 → LR 18:00 → 2S 01-16 20:04
PROVIDERS: ADMIT Obstetrics & Gynecology; ATTEND Obstetrics & Gynecology
PROC: 10D00Z1 Extraction of Products of Conception, Low, Open Approach (ICD-10-PCS; principal; 2019-01-15)
PROC: 0UL70CZ Occlusion of Bilateral Fallopian Tubes with Extraluminal Device, Open Approach (ICD-10-PCS; 2019-01-15)
DX: O34.211 Maternal care for low transverse scar from previous cesarean delivery (principal); O60.14X0 Preterm labor third trimester with preterm delivery third trimester, not applicable or unspecified; O41.03X0 Oligohydramnios, third trimester, not applicable or unspecified; N85.8 Other specified noninflammatory disorders of uterus; O14.94 Unspecified pre-eclampsia, complicating childbirth; O32.1XX0 Maternal care for breech presentation, not applicable or unspecified; O24.420 Gestational diabetes mellitus in childbirth, diet controlled; P03.89 Newborn affected by other specified complications of labor and delivery; O99.513 Diseases of the respiratory system complicating pregnancy, third trimester; J45.909 Unspecified asthma, uncomplicated; Z3A.36 36 weeks gestation of pregnancy; Z37.0 Single live birth; Z30.2 Encounter for sterilization
CPT/HCPCS: 1961; 36415; 80307; 81005; 85025; 85027; 86592; 86850; 86900; 86901; 87081; 87340; 87491; 87591; 94799; J0131; J1885; J2250; J2270; J2405; J2590; J3010; J3475; J3490